=== PATIENT | male | born 1975 | race Caucasian/White ===

== ENCOUNTER 2019-07-31 19:35 | Emergency (ER) | payer BC ==
[2019-07-31 19:50] VITALS: BP 143/97; PULSE 105; TEMP 98.9; BMI 41.5
[2019-07-31] MEDS ORDERED: AZITHROMYCIN 500 MG TABLET PO ONE (20:43)
[2019-07-31] MEDS ORDERED: AZITHROMYCIN 500 MG TABLET ONE (20:44)
--- NOTE | 2019-07-31 20:44 | PDOC ---
Documentation entered by Connie De Jesus SCRIBE, acting as scribe for Tiffany Gallo MD. Tiffany aGllo MD: This documentation has been prepared by the maryibe, Connie De Jesus SCRIBE, under my direction and personally reviewed by me in its entirety. I confirm that the documentation accurately reflects all work, treatment, procedures, and medical decision making performed by me. History of Present Illness - General Chief Complaint: Ear Problem Stated Complaint: EARACHE B/L Time Seen by Provider: 07/31/19 19:47 History Source: Patient Exam Limitations: No Limitations - History of Present Illness Initial Comments: 07/31/19 20:46 Patient is a 43 year old male who presents to the ED with 2 days left ear pain , cough and chest congestion. As per patient the pain began as a subtle ringing noise which progressively worsened to sharp pain. Patient states he is coughing up green phlegm. PAST MEDICAL HISTORY: no significant history PAST SURGICAL HISTORY: no significant history FAMILY HISTORY: no pertinent history SOCIAL HISTORY: Pt lives with family and is employed. MEDICATIONS: reviewed ALLERGIES: No known Allergies. General: No fevers or chills, no weakness, no weight loss HEENT: +ear pain No change in vision. No sore throat. CardioVascular: No chest pain or shortness of breath Respiratory: +cough. No wheezing. Gastrointestinal: no nausea, vomiting, diarrhea or constipation, No rectal bleeding Genitourinary: No dysuria, hematuria, or frequency Musculoskeletal: No joint or muscle pain or swelling Neurologic: No headache, vertigo, dizziness or loss of consciousness Psychiatric: nor depression Skin: No rashes or easy bruising Endocrine: no increased thirst or abnormal weight change Allergic: no skin or latex allergy All other systems reviewed and normal General: Well-nourished well-developed individual, no acute distress HEENT:+left tympanic ear membrane Throat: Normal, tonsils normal, no erythema or exudate Neck: Supple, no meningeal signs, no lymphadenopathy Eyes::Pupils equal reactive and round, extraocular motion intact Chest: + coarse breast sounds. Nontender to palpation Cardiac: S1-S2 normal, regular rate and rhythm, no murmurs rubs or gallops Respiratory: Lungs clear to auscultation bilateral Abdomen: Soft, nondistended, normal bowel sounds, nontender to palpation diffusely Extremities: Warm, dry, no cyanosis, clubbing, or edema Skin: No rashes Neuro: Alert and oriented x3, nonfocal exam, grossly intact, normal gait Psych: Normal mood and affect Assessment and plan: This is a 43-year-old male who comes in complaining of cough with productive sputum yellowish-green in color some bilateral ear pain and upper respiratory tract type symptoms. Patient had a chest x-ray that does show some peribronchial thickening on the right most likely some mild early bronchitis Patient given Z-Gerardo and discharged we will follow-up with his primary care doctor Patient also told to take a decongestant. 07/31/19 21:23 Past History - Past Medical History Allergies/Adverse Reactions: Allergies Allergy/AdvReac Type Severity Reaction Status Date / Time No Known Allergies Allergy Verified 09/23/13 16:55 Home Medications: Ambulatory Orders No Home Medications 0 dose .ROUTE UTDICT 09/23/13 Azithromycin 250 mg PO DAILY #4 tablet 07/31/19 Hydrochlorothiazide 25 mg PO DAILY 07/31/19 Lisinopril 10 mg PO DAILY 07/31/19 COPD: No HTN: Yes Thyroid Disease: No Other medical history: OBESE - Psycho Social/Smoking Cessation Hx Smoking History: Never smoked Have you smoked in the past 12 months: No Hx Alcohol Use: No (OCCASIONALLY) Substance Use Type: None *Physical Exam - Vital Signs Last Vital Signs Temp Pulse Resp BP Pulse Ox 98.9 F 105 H 16 143/97 98 07/31/19 19:37 07/31/19 19:37 07/31/19 19:37 07/31/19 19:37 07/31/19 19:37 ED Treatment Course - RADIOLOGY Radiology Studies Ordered: Category Date Time Status CHEST PA & LAT [RAD] Stat Radiology 07/31/19 20:14 Taken Discharge - Discharge Information Problems reviewed: Yes Clinical Impression/Diagnosis: Bronchitis Condition: Stable Disposition: HOME - Admission No - Additional Discharge Information Prescriptions: Azithromycin 250 mg PO DAILY #4 tablet - Follow up/Referral - Patient Discharge Instructions Additional Instructions: Purchase [id number] can be decongestant and take as directed NyQuil DayQuil or Sudafed, Take azithromycin 1 tablet a day for the next 4 days you are given the first dose here in the ED. Return to the emergency department immediately with ANY new, persistent or worsening symptoms. Continue any medications as previously prescribed by your physician. You should follow up with your primary doctor as soon as possible regarding today's emergency department visit. . Please make sure your doctor reviews the results of your emergency evaluation. Thank you for coming to the Emergency Department today for your care. It was a pleasure to see you today. Please note that your evaluation is INCOMPLETE until you follow-up with your doctor. - Post Discharge Activity
== END 2019-07-31 20:47 | disposition home or self-care (01) ==
LOC: FER 19:35
DX: J40 Bronchitis, not specified as acute or chronic (principal); I10 Essential (primary) hypertension; E66.9 Obesity, unspecified; Z68.41 Body mass index [BMI] 40.0-44.9, adult
CPT/HCPCS: 71046-TC-FY; 99282-25

== ENCOUNTER 2021-12-31 12:11 | Emergency (ER) | payer BC ==
[2021-12-31 12:40] VITALS: BP 146/86; PULSE 90; TEMP 99.1; BMI 46.1
[2021-12-31] MEDS ORDERED: BEBTELOVIMAB (EUA) 175 MG/2 ML VIAL IVPUSH ONE (13:07)
== END 2021-12-31 18:25 | disposition home or self-care (01) ==
LOC: JER 12:11 → JCOVINFU 12:11
DX: U07.1 COVID-19 (principal)
CPT/HCPCS: 99284-25; M0222; Q0222